=== PATIENT | female | born 1950 | race Caucasian/White ===

== ENCOUNTER 2019-01-08 08:00 | Outpatient (CLI) | payer MEDICARE ==
[2015-12-12 10:20] VITALS: BMI 27.3
[~2019-01-08 08:00] MED LIST: BACTRIM DS TABL1 TAB PO; LEVAQUIN500 MG PO
== END 2019-01-08 23:59 | disposition home or self-care (01) ==
LOC: D.MAMMO 08:00
PROVIDERS: ATTEND Family Medicine
DX: Z12.31 Encounter for screening mammogram for malignant neoplasm of breast (principal)

== ENCOUNTER → 2019-09-17 09:22 | Outpatient (CLI) | payer OTHER ==
[2015-12-12 10:20] VITALS: BMI 27.3
== END | disposition home or self-care (01) ==
LOC: D.RAD 09:22 → D.MRI 10:30
PROVIDERS: ATTEND Nurse Practitioner Family
DX: M25.511 Pain in right shoulder (principal)